=== PATIENT | female | born 2000 | race African-American/Black ===

== ENCOUNTER 2019-12-27 02:27 | Emergency (ER) | payer SELFPAY ==
[~2019-12-27] VITALS: Ht 154.9 cm; Wt 46.7 kg
[2019-12-27 02:37] VITALS: BP 106/56
[2019-12-27] MEDS ORDERED: Augmentin 875mg Tab ORAL ONE (02:45)
[2019-12-27] MEDS ORDERED: dexAMETHasone 10mg/ml Inj IV ONE (02:45)
[2019-12-27] MEDS ORDERED: IBUPROFEN600 M1 ORAL (02:47)
[2019-12-27] MEDS ORDERED: PREDNISONE20 MG ORAL (02:47)
[2019-12-27] MEDS ORDERED: AUGMENTIN 875-1 EAC1 ORAL (02:47)
--- NOTE | 2019-12-27 02:48 | Emergency Room Report ---
History of Present Illness General Chief Complaint: Sore Throat Source: Patient Present Illness HPI This a 19-year-old female with no past medical history. She presents with complaint of sore throat and ear pain. Sore throat been ongoing for 3 days. Ear pain for 1 day. Pain to throat is 9 out of 10. Worse with swallowing. Better with rest. Ear pain started today. No nausea no vomiting. No cough or congestion. No fever. Allergies: Coded Allergies: No Known Allergies (Unverified , 12/27/19) COVID-19 Screening Contact w/high risk pt: No Experienced COVID-19 symptoms?: No COVID-19 Testing performed TITLE ATTORNEY: No Patient History Past Medical History: see triage record, old chart reviewed Past Surgical History: none Pertinent Family History: none Social History: Denies: smoking Last Menstrual Period: november 2019 Now: No Immunizations: other Reviewed Nursing Documentation: PMH: Agreed; PSxH: Agreed Nursing Documentation-PMH Past Medical History: No Stated History Review of Systems Eye: Denies: eye pain, blurred vision ENT: Reports: ear pain, throat pain, throat swelling; Denies: nose congestion Respiratory: Denies: cough, shortness of breath Cardiovascular: Denies: chest pain, palpitations Gastrointestinal: Denies: abdominal pain, diarrhea, nausea, vomiting Musculoskeletal: Denies: back pain, joint pain Skin: Denies: rash Neurological: Denies: headache, numbness Endocrine: Denies: increased thirst, increased urine Hematologic/Lymphatic: Denies: easy bruising All Other Systems: negative except mentioned in HPI Physical Exam Vital Signs Date Time Temp Pulse Resp B/P (MAP) Pulse Ox O2 Delivery O2 Flow Rate FiO2 12/27/19 02:31 99.3 90 15 106/56 (73) 98 Room Air Vitals normal Sp02 EP Interpretation: reviewed, normal General Appearance: well appearing, no apparent distress, alert Head: normocephalic, atraumatic Eyes: bilateral eye PERRL, bilateral eye EOMI ENT: hearing grossly normal, TMs + canals normal, uvula midline, tonsillar swelling, pharyngeal erythema, tonsillar exudate, other - She has mild trismus Neck: full range of motion, supple, no meningismus Respiratory: chest non-tender, lungs clear, normal breath sounds Cardiovascular #1: regular rate, rhythm, no murmur Gastrointestinal: normal bowel sounds, non tender, no mass, no organomegaly, no bruit, non-distended Musculoskeletal: back normal, normal range of motion, gait/station normal Psychiatric: mood/affect normal Medical Decision Making Diagnostic Impression: Primary Impression: Sore throat ER Course This patient presents with pharyngitis/tonsillitis. She may have early peritonsillar abscess. Looks well. No evidence of retropharyngeal abscess or Claude angina. Dose of antibiotics and steroid given here. Will discharge ho me. Last Vital Signs Date Time Temp Pulse Resp B/P (MAP) Pulse Ox O2 Delivery O2 Flow Rate FiO2 12/27/19 02:37 99.3 90 15 106/56 98 Room Air Status: improved Disposition: HOME, SELF-CARE Condition: Stable Scripts Prednisone* (PREDNISONE*) 20 Mg Tablet 40 MG ORAL DAILY, #8 TAB Prov: Antonio Palmer MD 12/27/19 Ibuprofen* (MOTRIN*) 600 Mg Tablet 600 MG ORAL Q6H PRN for For Pain, #30 TAB 0 Refills Prov: Antonio Palmer MD 12/27/19 Amoxicillin/Potassium Clav 875-125* (AUGMENTIN 875-125 TABLET*) 1 Each Tablet 1 TAB ORAL TWICE A DAY, #14 TAB Prov: Antonio Palmer MD 12/27/19 Patient Instructions: Strep Throat Additional Instructions: Increase fluids. Salt water gargle. Follow-up with your doctor in 2 to 3 days for recheck. Return if symptoms worsen. Antonio Palmer MD Dec 27, 2019 02:48
[2019-12-27 02:50] VITALS: BP 110/72
== END 2019-12-27 02:50 | disposition home or self-care (01) ==
LOC: EMR 02:50
DX: R07.0 Pain in throat (principal); H92.09 Otalgia, unspecified ear; R25.2 Cramp and spasm
CPT/HCPCS: 96374; 99282

== ENCOUNTER 2020-01-15 13:48 | Emergency (ER) | payer SELFPAY ==
[~2020-01-15] VITALS: Ht 154.9 cm; Wt 47.6 kg
[~2020-01-15 13:48] MED LIST: AUGMENTIN 875-1 EAC1 ORAL; IBUPROFEN600 M1 ORAL; PREDNISONE20 MG ORAL
--- NOTE | 2020-01-15 14:05 | NUR ---
ED Nurse Note: Patient from home and walked in due to right thumb injury [id number] ago. Pt accidentally slammed her right thumb on her car door. no active bleeding noted, pt AAO x4, VSS at this time
[2020-01-15 14:10] VITALS: BP 119/70
--- NOTE | 2020-01-15 14:16 | Emergency Room Report ---
History of Present Illness General Chief Complaint: Upper Extremity Injury Source: Patient Present Illness HPI 19-year-old female with no cerebrovascular history here complaining of right thumb pain after accidentally smashing it in her car door. Patient has acrylic nails placed on and the nail was completely gone minimal bleeding noted. Patient was range of motion of the affected site denies any pain at this time. Denies any tingling numbness. Is up-to-date with tetanus shot. Patient reports that she does not want to have any x-rays and she needs to chicken picker her daughter from school. Patient agrees with the remainder treatment. Denies . Allergies: Coded Allergies: No Known Allergies (Unverified , 12/27/19) COVID-19 Screening Contact w/high risk pt: No Experienced COVID-19 symptoms?: No COVID-19 Testing performed GRISTMILL OPERATOR: No Patient History Past Medical History: see triage record Past Surgical History: none Pertinent Family History: none Last Menstrual Period: 01/02/20 Now: No Immunizations: UTD Reviewed Nursing Documentation: PMH: Agreed; PSxH: Agreed Nursing Documentation-PMH Past Medical History: No Stated History Review of Systems All Other Systems: negative except mentioned in HPI Physical Exam Vital Signs Date Time Temp Pulse Resp B/P (MAP) Pulse Ox O2 Delivery O2 Flow Rate FiO2 01/15/20 13:53 98.4 83 16 119/70 (86) 98 Room Air Sp02 EP Interpretation: reviewed, normal General Appearance: no apparent distress, alert, GCS 15, non-toxic Head: normocephalic, atraumatic Eyes: bilateral eye normal inspection, bilateral eye PERRL ENT: hearing grossly normal, normal pharynx, no angioedema, normal voice Neck: full range of motion, supple/symm/no masses Respiratory: chest non-tender, lungs clear, normal breath sounds, speaking full sentences Cardiovascular #1: regular rate, rhythm, no edema Gastrointestinal: normal bowel sounds, non tender, soft, non-distended, no guarding, no rebound Musculoskeletal: back normal, non-tender Neurologic: alert, motor strength/tone normal, oriented x3, sensory intact, responsive, speech normal Psychiatric: judgement/insight normal, memory normal, mood/affect normal, no suicidal/homicidal ideation Skin: other - Nail avulsion right thumb possible crushing injury minimal bleeding Lymphatic: no adenopathy Procedures Splinting Splinting : Consent: Verbal Location: Right thumb Pre-Made Type: metal Pre-Proc Neuro Vasc Exam: normal Post-Proc Neuro Vasc Exam: normal Patient Tolerated: Well Complications: None Medical Decision Making PA Attestation All diagnoses and treatment plans were reviewed and discussed with my supervising physician Dr. Mccall Diagnostic Impression: Primary Impression: Crushing injury of thumb Additional Impression: Nail avulsion ER Course 19-year-old female with no cerebrovascular history here complaining of right thumb pain after accidentally smashing it in her car door. Patient has acrylic nails placed on and the nail was completely gone minimal bleeding noted. P atient was range of motion of the affected site denies any pain at this time. Denies any tingling numbness. Is up-to-date with tetanus shot. Patient reports that she does not want to have any x-rays and she needs to chicken picker her daughter from school. Patient agrees with the remainder treatment. Denies . Ddx considered but are not limited to : Cellulitis, nail avulsion, crushing injury of thumb, broken thumb Vital signs: are WNL, pt. is afebrile H&PE are most consistent with: Crushing injury of thumb, nail avulsion ORDERS: Right thumb x-ray which patient defers, Augmentin, Motrin ED INTERVENTIONS: Wound clean and dressed, metal splint applied DISCHARGE: At this time pt. is stable for d/c to home. Will provide printed patient care instructions, and any necessary prescriptions. Care plan and follow up instructions have been discussed with the patient prior to discharge. Patient take medication as directed. Follow-up with primary care provider if worsening symptoms return to the emergency room Last Vital Signs Date Time Temp Pulse Resp B/P (MAP) Pulse Ox O2 Delivery O2 Flow Rate FiO2 01/15/20 13:53 98.4 83 16 119/70 (86) 98 Room Air Disposition: HOME, SELF-CARE Condition: Stable Scripts Ibuprofen* (MOTRIN*) 600 Mg Tablet 600 MG ORAL Q6H PRN for For Pain, #30 TAB 0 Refills Prov: Julio Granados 01/15/20 Amoxicillin/Potassium Clav 875-125* (AUGMENTIN 875-125 TABLET*) 1 Each Tablet 1 TAB ORAL TWICE A DAY for 7 Days, #14 TAB Prov: Julio Granados 01/15/20 Patient Instructions: Crush Injury, Fingers or Toes, [id number], Nail Avulsion Additional Instructions: Take medication as directed, follow-up with primary care provider, keep the splint on, if worsening symptoms return to the emergency room Julio Granados Jan 15, 2020 14:16
[2020-01-15] MEDS ORDERED: IBUPROFEN600 M1 ORAL (14:17)
[2020-01-15] MEDS ORDERED: AUGMENTIN 875-1 EAC1 ORAL (14:17)
[2020-01-15 14:22] VITALS: BP 119/70
--- NOTE | 2020-01-15 14:23 | NUR ---
ED Nurse Note: Pt cleared by health care Provider for discharge. DC instructions/prescription was given and explained to pt and verbalized understanding of teachings. All medical deviecs such as ID band removed. Pt is AAO x4, ambulatory and left with all personal belongings.
== END 2020-01-15 16:00 | disposition home or self-care (01) ==
LOC: EMR 14:15
DX: S67.01XA Crushing injury of right thumb, initial encounter (principal); S61.101A Unspecified open wound of right thumb with damage to nail, initial encounter; W23.0XXA Caught, crushed, jammed, or pinched between moving objects, initial encounter; Y92.9 Unspecified place or not applicable
CPT/HCPCS: 99282